=== PATIENT | male | born 1955 | race Caucasian/White ===

== ENCOUNTER → 2019-09-06 | Outpatient (CLI) | payer OTHER ==
[~2019-09-06] VITALS: Ht 188 cm; Wt 98.9 kg
[~2019-09-06] MED LIST: BYSTOLIC10 MG PO; NEXIUM40 MG PO; VALSARTAN-HCTZ1 EAC3 PO
--- NOTE | 2019-09-09 16:06 | PATH ---
[facility] [address] [place] [address] PATHOLOGY RPT PROCEDURE Name: UMESH JAY Room #: REG [facility].#: [id number] Admission: 09/06/19 Date of : 57 Discharge: Report #: [id number] Path Case #: [id number] [facility] Accession Number: [id number] . 01 Material submitted: . colon - POLYP AT 40CM . 01 Clinical history: . History of polyp. . 02 Diagnosis: Polyp, at 40 cm, endoscopic biopsy: - Tubular adenoma. - Negative for high-grade dysplasia. (IUV:pit; 09/09/2019) [facility] 09/09/2019 1403 Local . 02 Electronically signed: . Judi Baires MD, Pathologist NPI- [id number] . 01 Gross description: . Received in formalin labeled "Umesh Jay, polyp at 40 cm" is a 0.7 x 0.5 x 0.1 cm fragment of dougherty-brown mucosa. The specimen is submitted in A1. ([facility]; 09/07/2019) [facility] 09/07/2019 0926 Local . 02 Pathologist provided ICD-10: D12.6 . 02 CPT . 843276 Specimen Comment: A courtesy copy of this report has been sent to [phone] Specimen Comment: Report sent to and Performed at: [address] [id number] MD Nithin Haley MD Phone: [phone] Performed at: [address] [id number] MD Judi Baires MD Phone: [phone]
--- NOTE | 2019-09-11 16:47 | P ---
[facility] [place] [address] PROCEDURE REPORT Name: KAMRYN SWEET Room #: REG [facility]#: [id number] Admission: 09/06/19 Attend Phys: Miguel Vargas MD Discharge: Date of : 57 Report #: [id number] THIS REPORT FOR: //name// CC: Miguel Penn MD BRIEF HISTORY: The patient is a 64-year-old man with history of 6 adenomas lifetime for surveillance colonoscopy. PREOPERATIVE DIAGNOSIS: History of colon polyps. POSTOPERATIVE DIAGNOSES: 1. A 5 mm sessile polyp, 40 cm. 2. Diffuse scattered colonic diverticula. 3. Small internal hemorrhoids. MEDICATIONS: Deep sedation with propofol per anesthesia. SPECIMEN: Polyp from 40 cm. ESTIMATED BLOOD LOSS: 3 mL. PROCEDURE: Colonoscopy to terminal ileum with biopsy. FINDINGS: Prior to propofol sedation, procedure of colonoscopy discussed with the patient as well as potential risks and its complications. He indicates he understands and desires to proceed. DESCRIPTION OF PROCEDURE: With the patient in left lateral decubitus position, digital examination was completed, which revealed no abnormalities. Subsequently, the Olympus video colonoscope was introduced in the rectum, advanced under direct vision to the cecum. Done with minimal difficulty. The cecum was identified by the ileocecal valve and the appendiceal orifice. I was able to visualize the distal segment of terminal ileum, which was inspected and noted to be unremarkable. At that point, the scope was slowly withdrawn and careful circumferential views were obtained. Upon slow withdrawal of the scope, the prep was excellent. The mucosa was within normal limits, normal vascular pattern, normal light reflex. The mucosa was within normal limits throughout the entire colon. He was noted to have an occasional diverticulum in the proximal colon. There was no endoscopic evidence of diverticulitis. He was also found to have a 5 mm sessile polyp at about 40 cm, which was removed by cold snare polypectomy. Scope was further withdrawn and no additional neoplastic or inflammatory changes were seen. Also, few small scattered diverticula seen in the sigmoid colon without endoscopic evidence of diverticulitis. Scope was withdrawn in the rectum, no abnormalities were seen. Upon retroflexion, small hemorrhoids were seen. Scope was withdrawn. [facility] [address] [place] [address] PROCEDURE REPORT Name: KEEKAMRYN [id number] Admission: 09/06/19 Attend Phys: Migule Vargas MD Discharge: Date of : 57 Report #: [id number] patient tolerated the procedure well. CONDITION OF THE PATIENT UPON DISCHARGE: Following procedure, the patient drowsy, aroused, conversant and will be discharged home when fully ambulatory. INSTRUCTIONS TO THE PATIENT AND FAMILY AT THE TIME OF DISCHARGE: We will follow up on the pathology. However, in view of his history of 6 previous adenomas, I suggest to return in 5 years for followup colonoscopy. Suggest high fiber diet due to diverticular disease. Last colonoscopy was more than 3 years ago. Withdrawal time from the cecum was 12 minutes 13 seconds. <ELECTRONICALLY SIGNED> By: Miguel Vargas MD 09/11/19 1647 [id number] Miguel Vargas MD /nt
== END | disposition home or self-care (01) ==
LOC: GI 08-29 11:31
DX: Z12.11 Encounter for screening for malignant neoplasm of colon (principal); Z86.010 Personal history of colon polyps; D12.5 Benign neoplasm of sigmoid colon; K57.30 Diverticulosis of large intestine without perforation or abscess without bleeding; K64.8 Other hemorrhoids; I10 Essential (primary) hypertension; K21.9 Gastro-esophageal reflux disease without esophagitis; Z98.890 Other specified postprocedural states; Z79.899 Other long term (current) drug therapy
CPT/HCPCS: 62110; 62900